=== PATIENT | female | born 1995 | race Caucasian/White ===

== ENCOUNTER 2022-03-01 22:16 | Emergency (ER) | payer OTHER ==
[2022-03-01 22:34] VITALS: TEMP 99.1
--- NOTE | 2022-03-01 23:43 | XR ---
EXAMINATION TYPE: XR hand complete RT DATE OF EXAM: 03/01/2022 COMPARISON: NONE HISTORY: Dog bite TECHNIQUE: 3 views FINDINGS: Metacarpals are intact. I see no fracture nor dislocation. There is mild soft tissue air be tween the first and second metacarpals. Carpal bones are intact. Fingers are intact IMPRESSION: There is minimal soft tissue air consistent with laceration. No fracture seen.
[2022-03-02] MEDS ORDERED: DIPH,PERTUS(ACELL)TETVAC-LF 0.5 ML VIAL IM ONE (00:33)
[2022-03-02] MEDS ORDERED: HYDROcodone/APAP 5-325MG 1 EACH TAB PO STA (00:33)
[2022-03-02] MEDS ORDERED: LIDOCAINE 1% INJ 10MG/ML (5 ML VIAL-PF) SQ ONE (00:45)
[2022-03-02] MEDS ORDERED: AMOXIC-POT CLAV 875-125MG 1 EACH TAB PO STA (01:04)
--- NOTE | 2022-03-02 01:07 | ED ---
General Adult HPI - General Chief complaint: Trauma Stated complaint: dog bite Time Seen by Provider: 03/02/22 00:30 Source: patient, family, RN notes reviewed, old records reviewed Mode of arrival: ambulatory Limitations: no limitations - History of Present Illness Initial comments: 26-year-old female presents with multiple dog bites to her right hand with punctures and lacerations. Patient states the dog is a coworkers pit bull whose shots are up-to-date. -: hour(s) Radiation: non-radiation, distal (little finger) Severity scale (1-10): 10 Quality: stabbing, constant Consistency: constant Associated Symptoms: denies other symptoms Treatments Prior to Arrival: none - Related Data Previous Rx's Medication Instructions Recorded Amoxic-Pot Clav 875-125Mg 1 tab PO Q12HR 10 Days #20 tab 03/02/22 [Augmentin 875-125] Allergies Allergy/AdvReac Type Severity Reaction Status Date / Time No Known Allergies Allergy Verified 03/01/22 22:34 Review of Systems ROS Statement: Those systems with pertinent positive or pertinent negative responses have been documented in the HPI. ROS Other: All systems not noted in ROS Statement are negative. Past Medical History History of Any Multi-Drug Resistant Organisms: None Reported Past Psychological History: Depression Smoking Status: Former smoker Past Alcohol Use History: None Reported Past Drug Use History: Marijuana General Exam Limitations: no limitations General appearance: alert, in no apparent distress Head exam: Present: atraumatic Eye exam: Present: normal appearance. Absent: scleral icterus, conjunctival i njection ENT exam: Present: mucous membranes moist Neck exam: Present: full ROM. Absent: meningismus Respiratory exam: Absent: respiratory distress, accessory muscle use Cardiovascular Exam: Present: regular rate GI/Abdominal exam: Present: soft. Absent: distended, tenderness Extremities exam: Present: full ROM, normal capillary refill. Absent: tenderness, pedal edema Right Forearm Wrist exam: Present: laceration (2 lacerations approx 3mm to anterior wrist and puncture wound to dorsal surface of thumb) Hand Wrist exam: Present: full ROM, tenderness, laceration Neurosensory exam: Present: radial nerve intact, ulnar nerve intact, median nerve intact Vascular: Present: normal capillary refill. Absent: vascular compromise Neurological exam: Present: alert, oriented X3 Psychiatric exam: Present: anxious Skin exam: Present: warm, dry, normal color. Absent: cyanosis, diaphoretic Course Vital Signs 03/01/22 03/02/22 03/02/22 22:29 00:59 01:51 Temperature 99.1 F Pulse Rate 78 88 92 Respiratory 24 20 Rate Blood Pressure 118/68 128/97 O2 Sat by Pulse 87 L 95 95 Oximetry Procedures - Laceration Laceration #1 Consent Obtained: verbal consent Indication: laceration Site: hand (right) Size (cm): 5 Description: linear Depth: simple, single layer Anesthetic Used: lidocaine 1% Anesthesia Technique: local infiltration Pre-repair: irrigated extensively Type of Sutures: nylon Size of Sutures: 4-0 Number of Sutures: 3 Technique: simple, interrupted Patient Tolerated Procedure: well, no complications Medical Decision Making - Medical Decision Making Wounds were soaked and irrigated copiously with saline. Gaping 5cm laceration over the palmar surface overlying the fifth metacarpal was loosely approximated with 3 sutures. Patient's tetanus was updated. Other puncture sites were irrigated with saline and bacitracin dressing applied. She was placed on antibiotics and given a dose in the emergency room. She was directed to have coworker monitor his dog for any illnesses. Follow-up with hand surgery this week. Return parameters were discussed including increased pain, fevers or signs of infection. Patient family are agreeable to this plan of care. Case discussed with Dr. Kirkland. Disposition Clinical Impression: Dog bite, Laceration of hand Disposition: HOME SELF-CARE Condition: Good Additional Instructions: Keep wound clean and dry. Take antibiotics as prescribed. Follow-up with hand doctor as referred this week. Return to the emergency room with any new or concerning symptoms increased pain, fevers or drainage. Have the dog monitored for any signs of illness. Prescriptions: Amoxic-Pot Clav 875-125Mg [Augmentin 875-125] 1 tab PO Q12HR 10 Days #20 tab Is patient prescribed a controlled substance at d/c from ED?: No Referrals: None,Stated [Primary Care Provider] - 1-2 days Patricia Gatica DO [Doctor of Osteopathic Medicine] - 1-2 days Time of Disposition: 01:26
[2022-03-02] MEDS ORDERED: ACET/COD 300 MG/30 MG STARTER PACK 6 TAB BTL PO STA (01:24)
[2022-03-02] MEDS ORDERED: BACITRACIN OINT 1 EACH PACKET TOPICAL ONE (01:24)
[2022-03-02 01:52] VITALS: BP 128/97; PULSE 92; RESP 20
== END 2022-03-02 01:57 | disposition home or self-care (01) ==
LOC: EC 22:16
DX: S61.411A Laceration without foreign body of right hand, initial encounter (principal); Z23 Encounter for immunization; F32.A Depression, unspecified; Z87.891 Personal history of nicotine dependence; F12.90 Cannabis use, unspecified, uncomplicated; W54.0XXA Bitten by dog, initial encounter
CPT/HCPCS: 12002; 90471; 90715; 99283

== ENCOUNTER 2022-03-03 15:07 | Emergency (ER) | payer OTHER ==
[2022-03-03 15:38] VITALS: BP 112/68; PULSE 72; RESP 18; TEMP 98.4
[2022-03-03 16:55] LABS: Basophils # (A) 0.1 k/uL (0-0.2); Basophils % (A) 1 %; Eosinophils # (A) 1.1 k/uL (0-0.7); Eosinophils % (A) 12 %; HCT 43.8 % (34.0-46.0); HGB 14.8 gm/dL (11.4-16.0); Lymphocytes # (A) 1.6 k/uL (1.0-4.8); Lymphocytes % (A) 17 %; MCH 28.5 pg (25.0-35.0); MCHC 33.8 g/dL (31.0-37.0); MCV 84.5 fL (80.0-100.0); Mean Platelet Volume 8.3; Monocytes # (A) 0.5 k/uL (0-1.0); Monocytes % (A) 5 %; Neutrophils # (A) 6.2 k/uL (1.3-7.7); Neutrophils % (A) 64 %; Platelet Count 258 k/uL (150-450); RBC 5.18 m/uL (3.80-5.40); RDW 14.5 % (11.5-15.5); WBC 9.6 k/uL (3.8-10.6)
[2022-03-03] MEDS ORDERED: AMPICILLIN-SULBACTAM 1.5 GM in SODIUM CHLORIDE 0.9% 50 ML IVPB ONE (17:00)
[2022-03-03 17:04] LABS: ALT 20 U/L (4-34); AST 20 U/L (14-36); African American GFR (CKD) >90 (>60 ml/min/1.73 sqM); Alkaline Phosphatase 68 U/L (38-126); Anion Gap 8 mmol/L; Blood Urea Nitrogen 11 mg/dL (7-17); Calcium 9.1 mg/dL (8.4-10.2); Carbon Dioxide 26 mmol/L (22-30); Chloride 106 mmol/L (98-107); Glucose 81 mg/dL (74-99); Non-African American GFR(CKD) >90 (>60 ml/min/1.73 sqM); Potassium 3.2 mmol/L (3.5-5.1); Sodium 140 mmol/L (137-145); Total Bilirubin 1.1 mg/dL (0.2-1.3); Total Protein 7.1 g/dL (6.3-8.2)
--- NOTE | 2022-03-03 17:11 | ED ---
Animal Bite HPI - General Chief Complaint: Animal Bite Stated Complaint: Recheck,Dog Bite Time Seen by Provider: 03/03/22 15:41 Source: patient, RN notes reviewed, old records reviewed Mode of arrival: ambulatory Limitations: no limitations - History of Present Illness Initial Comments: Patient is a 26-year-old female presents back to the emergency room with complaints of increased swelling, pain and drainage along with warmth to her right hand and wrist region. She was seen yesterday in the emergency room after she was bitten by a dog. X-ray at that time with negative for fracture or dislocation and showed soft tissue swelling. 3 sutures were placed and she was advised to follow up with her primary care provider and start oral antibiotics. She reports that she was advised that the rabies vaccines of the dog are up-to-date. Unfortunately due to the location of her work she was unable to obtain the oral antibiotics. She did receive IV antibiotic of Unasyn in the hospital. Her tetanus shot is up-to-date. She has no other significant past medical history with the exception of asthma which she denies any recent exacerbations. - Related Data Previous Rx's Medication Instructions Recorded Amoxic-Pot Clav 875-125Mg 1 tab PO Q12HR 10 Days #20 tab 03/02/22 [Augmentin 875-125] Allergies Allergy/AdvReac Type Severity Reaction Status Date / Time No Known Allergies Allergy Verified 03/03/22 15:35 Review of Systems ROS Statement: Those systems with pertinent positive or pertinent negative responses have been documented in the HPI. ROS Other: All systems not noted in ROS Statement are negative. Past Medical History Past Medical History: Asthma History of Any Multi-Drug Resistant Organisms: None Reported Past Surgical History: Appendectomy, Section, Cholecystectomy, Tubal Ligation Past Psychological History: Depression Smoking Status: Former smoker Past Alcohol Use History: None Reported Past Drug Use History: Marijuana General Exam Limitations: no limitations General appearance: alert, in no apparent distress Head exam: Present: atraumatic, normocephalic, normal inspection Eye exam: Present: normal appearance, PERRL, EOMI. Absent: scleral icterus, con junctival injection, periorbital swelling ENT exam: Present: normal exam, mucous membranes moist Neck exam: Present: normal inspection. Absent: lymphadenopathy Respiratory exam: Present: normal lung sounds bilaterally. Absent: respiratory distress, wheezes, rales, rhonchi, stridor Cardiovascular Exam: Present: regular rate, normal rhythm, normal heart sounds. Absent: systolic murmur, diastolic murmur, rubs, gallop, clicks GI/Abdominal exam: Present: soft. Absent: distended, tenderness Right Hand Wrist exam: Present: tenderness, swelling, laceration, erythema. Absent: full ROM (Due to swelling and pain) Vascular: Absent: vascular compromise Back exam: Present: normal inspection Neurological exam: Present: alert, oriented X3, CN II-XII intact Psychiatric exam: Present: normal affect, normal mood Skin exam: Present: other (Laceration right hand with purulent drainage, no odor.) Course Vital Signs 03/03/22 15:35 Temperature 98.4 F Pulse Rate 72 Respiratory 18 Rate Blood Pressure 112/68 O2 Sat by Pulse 96 Oximetry Medical Decision Making - Medical Decision Making Purulent drainage warmth and significant edema noted. Will check CBC comp lactic acid and blood cultures for worsening of infectious process will give another dose of Unasyn IV and repeat x-ray left hand. High concern for cellulitis needing IV antibiotics given severity of swelling and drainage with wound only 24 hours old. Sutures 3 and tacked loosely. CBC and lactic acid normal blood cultures still pending advised will receive call from hospital if positive cultures. Normal with the exception of low potassium at 3.2. No obvious signs of loss. Will replace orally once no need for outpatient potassium at this time. X-ray negative for foreign body, osteomyelitis, fracture or dislocation. Soft tissue swelling persists. Patient has appointment are ready scheduled with Dr. Gatica tomorrow. Will discharge home and keep off work until cleared by orthopedist. 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 Case discussed with Dr. Soto. - Lab Data Result diagrams: 03/03/22 16:40 03/03/22 16:40 Lab Results 03/03/22 03/03/22 03/03/22 Range/Units 16:40 16:40 16:40 WBC 9.6 (3.8-10.6) k/uL RBC 5.18 (3.80-5.40) m/uL Hgb 14.8 (11.4-16.0) gm/dL Hct 43.8 (34.0-46.0) % MCV 84.5 (80.0-100.0) fL MCH 28.5 (25.0-35.0) pg MCHC 33.8 (31.0-37.0) g/dL RDW 14.5 (11.5-15.5) % Plt Count 258 (150-450) k/uL MPV 8.3 Neutrophils % 64 % Lymphocytes % 17 % Monocytes % 5 % Eosinophils % 12 % Basophils % 1 % Neutrophils # 6.2 (1.3-7.7) k/uL Lymphocytes # 1.6 (1.0-4.8) k/uL Monocytes # 0.5 (0-1.0) k/uL Eosinophils # 1.1 H (0-0.7) k/uL Basophils # 0.1 (0-0.2) k/uL Sodium 140 (137-145) mmol/L Potassium 3.2 L (3.5-5.1) mmol/L Chloride 106 (98-107) mmol/L Carbon Dioxide 26 (22-30) mmol/L Anion Gap 8 mmol/L BUN 11 (7-17) mg/dL Creatinine 0.71 (0.52-1.04) mg/dL Est GFR (CKD-EPI)AfAm >90 (>60 ml/min/1.73 sqM) Est GFR (CKD-EPI)NonAf >90 (>60 ml/min/1.73 sqM) Glucose 81 (74-99) mg/dL Plasma Lactic Acid Ken 0.7 (0.7-2.0) mmol/L Calcium 9.1 (8.4-10.2) mg/dL Total Bilirubin 1.1 (0.2-1.3) mg/dL AST 20 (14-36) U/L ALT 20 (4-34) U/L Alkaline Phosphatase 68 (38-126) U/L Total Protein 7.1 (6.3-8.2) g/dL Albumin 4.0 (3.5-5.0) g/dL Disposition Clinical Impression: Bite by animal Disposition: HOME SELF-CARE Instructions (If sedation given, give patient instructions): Animal Bite (ED), Care For Your Stitches (ED), Acute Wound Care (ED) Additional Instructions: Please obtain already prescribed antibiotics of Augmentin and complete as pr escribed. Please keep upcoming appointment with Dr. Gatica tomorrow for further evaluation and treatment of hand injury. Continue to monitor for increased swelling, redness and drainage. Along with fevers chills nausea or vomiting. Please report back to the emergency room if the symptoms occur. Please refrain from returning to work until cleared by the orthopedist. Utilize Tylenol or ibuprofen as needed for pain. Keep arm elevated. Apply ice for 20 minute increments every 2-4 hours as tolerated. Please return to the Emergency Department if symptoms worsen or any other concerns. Is patient prescribed a controlled substance at d/c from ED?: No Referrals: None,Stated [Primary Care Provider] - 1-2 days Patricia Gatica DO [Doctor of Osteopathic Medicine] - 03/04/22 Time of Disposition: 18:43
--- NOTE | 2022-03-03 18:03 | XR ---
EXAMINATION TYPE: XR hand limited RT DATE OF EXAM: 03/03/2022 COMPARISON: NONE HISTORY: Dog bite. TECHNIQUE: 2 view FINDINGS: There is soft tissue swelling on the dorsum of the hand. Metacarpals are intact. No fractur e nor dislocation. No evidence of a foreign body. IMPRESSION: Soft tissue swelling. No fracture. No evidence of fifth metacarpal fracture.
[2022-03-03] MEDS ORDERED: POTASSIUM CHLORIDE ER 20 MEQ TAB.ER PO STA (18:22)
== END 2022-03-03 19:09 | disposition home or self-care (01) ==
LOC: EC 15:07
DX: S61.451A Open bite of right hand, initial encounter (principal); J45.909 Unspecified asthma, uncomplicated; Z87.891 Personal history of nicotine dependence; T14.8XXA Other injury of unspecified body region, initial encounter; W54.0XXA Bitten by dog, initial encounter
CPT/HCPCS: 36415; 80053; 83605; 85025; 87040; 73120; 99283; 96365; J0295

== ENCOUNTER 2022-03-04 10:59 | Observation (INO) | payer OTHER ==
[2022-03-04] MEDS ORDERED: HYDROmorphone 0.5 MG/0.5 ML SYRINGE IVP STA ×2 (11:27→12:53)
--- NOTE | 2022-03-04 11:32 | ED ---
Animal Bite HPI - General Chief Complaint: Animal Bite Stated Complaint: Right hand dog bite Time Seen by Provider: 03/04/22 11:11 Source: patient, RN notes reviewed Mode of arrival: ambulatory Limitations: no limitations - History of Present Illness Initial Comments: This is a 26-year-old female who presents to the emergency department for a dog bite to the right hand. This occurred 2 days ago. The dog was a coworker's pit bull and the dog is up-to-date on all vaccinations. She saw Dr. Gatica, orthopedics, today. She was instructed to come to the emergency department for admission due to infection. She has started to have purulent drainage with redness spreading up the right arm. States that the pain is throbbing and she is having difficulty moving her fingers. Denies any fevers, chills, sore throat, cough, dyspnea, chest pain, p alpitations, abdominal pain, nausea, vomiting, diarrhea, back pain, or headaches. MD Complaint: animal bite Onset/Timin -: days(s) Right: Hand Animal: dog Description: household pet Mechanism: bite Associated Symptoms: erythema, discharge from wound, bleeding Treatments Prior to Arrival: wound dressing(s) - Related Data Patient Tetanus UTD: Yes Home Medications Medication Instructions Recorded Confirmed Albuterol Sulfate [Ventolin HFA] 2 puff INHALATION RT-Q4H PRN 03/04/22 03/04/22 Escitalopram [Lexapro] 5 mg PO HS 03/04/22 03/04/22 Etonogestrel [Nexplanon] 68 mg SQ [id number] 03/04/22 03/04/22 Fluticasone Propionate 110 Mcg 2 puff INHALATION RT-BID 03/04/22 03/04/22 [Flovent 110 Mcg Inhaler] Allergies Allergy/AdvReac Type Severity Reaction Status Date / Time No Known Allergies Allergy Verified 03/04/22 14:03 Review of Systems ROS Statement: Those systems with pertinent positive or pertinent negative responses have been documented in the HPI. ROS Other: All systems not noted in ROS Statement are negative. Past Medical History Past Medical History: Asthma History of Any Multi-Drug Resistant Organisms: None Reported Past Surgical History: Appendectomy, Section, Cholecystectomy, Tubal Ligation Past Psychological History: Depression Smoking Status: Former smoker Past Alcohol Use History: None Reported Past Drug Use History: Marijuana - Past Family History Father Family Medical History: Hyperlipidemia, Hypertension Mother Family Medical History: No Reported History Additional Family Medical History / Comment(s): Mother is healthy General Exam Limitations: no limitations General appearance: alert, in no apparent distress Head exam: Present: atraumatic, normocephalic, normal inspection Respiratory exam: Present: normal lung sounds bilaterally. Absent: respiratory distress, wheezes, rales, rhonchi, stridor Cardiovascular Exam: Present: regular rate, normal rhythm, normal heart sounds. Absent: systolic murmur, diastolic murmur, rubs, gallop, clicks Extremities exam: Present: other (Bite wound just inferior to the right thumb with active purulent drainage and bleeding. Diffuse swelling of the right hand with erythema spreading to the mid forearm. Tenderness to palpation. Limited range of motion of the fingers secondary to pain and swelling.) Neurological exam: Present: alert, oriented X3, CN II-XII intact Psychiatric exam: Present: normal affect, normal mood Course Vital Signs 03/04/22 03/04/22 11:06 13:23 Temperature 98.5 F Pulse Rate 82 80 Respiratory 20 17 Rate Blood Pressure 140/76 118/71 O2 Sat by Pulse 96 92 L Oximetry Medical Decision Making - Medical Decision Making This is a 26-year-old female who presents to the emergency department for a dog bite to the right hand. Wound and blood cultures ordered as well as basic lab work. Patient started on IV Unasyn and admitted to orthopedics. This case was discussed in detail with the attending ED physician. Presentation, findings, and treatment plan discussed in detail as well. - Lab Data Result diagrams: 03/04/22 11:54 03/04/22 11:54 Lab Results 03/04/22 03/04/22 03/04/22 Range/Units 11:54 11:54 11:54 WBC 9.6 (3.8-10.6) k/uL RBC 5.08 (3.80-5.40) m/uL Hgb 14.4 (11.4-16.0) gm/dL Hct 42.8 (34.0-46.0) % MCV 84.3 (80.0-100.0) fL MCH 28.3 (25.0-35.0) pg MCHC 33.6 (31.0-37.0) g/dL RDW 14.5 (11.5-15.5) % Plt Count 266 (150-450) k/uL MPV 8.4 Neutrophils % 62 % Lymphocytes % 19 % Monocytes % 4 % Eosinophils % 12 % Basophils % 1 % Neutrophils # 6.0 (1.3-7.7) k/uL Lymphocytes # 1.8 (1.0-4.8) k/uL Monocytes # 0.4 (0-1.0) k/uL Eosinophils # 1.2 H (0-0.7) k/uL Basophils # 0.1 (0-0.2) k/uL ESR (0-20) mm/hr Sodium 139 (137-145) mmol/L Potassium 3.4 L (3.5-5.1) mmol/L Chloride 108 H (98-107) mmol/L Carbon Dioxide 24 (22-30) mmol/L Anion Gap 7 mmol/L BUN 8 (7-17) mg/dL Creatinine 0.62 (0.52-1.04) mg/dL Est GFR (CKD-EPI)AfAm >90 (>60 ml/min/1.73 sqM) Est GFR (CKD-EPI)NonAf >90 (>60 ml/min/1.73 sqM) Glucose 90 (74-99) mg/dL Plasma Lactic Acid Ken 0.9 (0.7-2.0) mmol/L Calcium 9.0 (8.4-10.2) mg/dL Total Bilirubin 0.8 (0.2-1.3) mg/dL AST 21 (14-36) U/L ALT 18 (4-34) U/L Alkaline Phosphatase 66 (38-126) U/L C-Reactive Protein (<1.0) mg/dL Total Protein 6.7 (6.3-8.2) g/dL Albumin 3.8 (3.5-5.0) g/dL 03/04/22 03/04/22 Range/Units 11:54 11:54 WBC (3.8-10.6) k/uL RBC (3.80-5.40) m/uL Hgb (11.4-16.0) gm/dL Hct (34.0-46.0) % MCV (80.0-100.0) fL MCH (25.0-35.0) pg MCHC (31.0-37.0) g/dL RDW (11.5-15.5) % Plt Count (150-450) k/uL MPV Neutrophils % % Lymphocytes % % Monocytes % % Eosinophils % % Basophils % % Neutrophils # (1.3-7.7) k/uL Lymphocytes # (1.0-4.8) k/uL Monocytes # (0-1.0) k/uL Eosinophils # (0-0.7) k/uL Basophils # (0-0.2) k/uL ESR 28 H (0-20) mm/hr Sodium (137-145) mmol/L Potassium (3.5-5.1) mmol/L Chloride (98-107) mmol/L Carbon Dioxide (22-30) mmol/L Anion Gap mmol/L BUN (7-17) mg/dL Creatinine (0.52-1.04) mg/dL Est GFR (CKD-EPI)AfAm (>60 ml/min/1.73 sqM) Est GFR (CKD-EPI)NonAf (>60 ml/min/1.73 sqM) Glucose (74-99) mg/dL Plasma Lactic Acid Ken (0.7-2.0) mmol/L Calcium (8.4-10.2) mg/dL Total Bilirubin (0.2-1.3) mg/dL AST (14-36) U/L ALT (4-34) U/L Alkaline Phosphatase (38-126) U/L C-Reactive Protein 4.1 H (<1.0) mg/dL Total Protein (6.3-8.2) g/dL Albumin (3.5-5.0) g/dL - Radiology Data Radiology results: report reviewed, image reviewed Disposition Clinical Impression: Dog bite of right hand with infection Disposition: ADMITTED IP TO THIS HOSP
[2022-03-04] MEDS: AMPICILLIN-SULBACTAM 3 GM in SODIUM CHLORIDE 0.9% 100 ML IVPB SCH ×2 (11:49→17:50)
[2022-03-04 12:13] LABS: Basophils # (A) 0.1 k/uL (0-0.2); Basophils % (A) 1 %; Eosinophils # (A) 1.2 k/uL (0-0.7); Eosinophils % (A) 12 %; HCT 42.8 % (34.0-46.0); HGB 14.4 gm/dL (11.4-16.0); Lymphocytes # (A) 1.8 k/uL (1.0-4.8); Lymphocytes % (A) 19 %; MCH 28.3 pg (25.0-35.0); MCHC 33.6 g/dL (31.0-37.0); MCV 84.3 fL (80.0-100.0); Mean Platelet Volume 8.4; Monocytes # (A) 0.4 k/uL (0-1.0); Monocytes % (A) 4 %; Neutrophils % (A) 62 %; Platelet Count 266 k/uL (150-450); RBC 5.08 m/uL (3.80-5.40); RDW 14.5 % (11.5-15.5); WBC 9.6 k/uL (3.8-10.6)
--- NOTE | 2022-03-04 12:16 | XR ---
EXAMINATION TYPE: XR hand complete RT DATE OF EXAM: 03/04/2022 COMPARISON: NONE HISTORY: Pain TECHNIQUE: Three views are submitted. FINDINGS: The osseous structures are intact. The joint spaces are preserved and there is no acute fracture or dislocation. IMPRESSION: 1. No definite acute fracture or dislocation if symptoms persist, follow-up study in 7 to 10 days wo uld be suggested
[2022-03-04 12:26] LABS: ALT 18 U/L (4-34); AST 21 U/L (14-36); African American GFR (CKD) >90 (>60 ml/min/1.73 sqM); Albumin 3.8 g/dL (3.5-5.0); Alkaline Phosphatase 66 U/L (38-126); Anion Gap 7 mmol/L; Blood Urea Nitrogen 8 mg/dL (7-17); Carbon Dioxide 24 mmol/L (22-30); Chloride 108 mmol/L (98-107); Glucose 90 mg/dL (74-99); Non-African American GFR(CKD) >90 (>60 ml/min/1.73 sqM); Potassium 3.4 mmol/L (3.5-5.1); Sodium 139 mmol/L (137-145); Total Bilirubin 0.8 mg/dL (0.2-1.3); Total Protein 6.7 g/dL (6.3-8.2)
[2022-03-04] MEDS ORDERED: NALOXONE 0.4 MG/ML 1 ML VIAL IV PRN (13:09)
--- NOTE | 2022-03-04 15:55 | P.HPOR ---
History of Present Illness H&P Date: 03/04/22 Chief Complaint: Dog bite right hand The patient is a 26 y/o female that presented to our office this morning for an evaluation of her right hand. She states she was bitten by her coworker's dog on Wednesday night. She went to the [facility] ER to evaluation that night and sutures were placed. Oral antibiotics were prescribed but she did not have them filled yet. The hand continued to worsen and she noticed redness was spreading up her hand just past her wrist. The patient presented to the ER again last night and IV antibiotics were given. She was sent home with a follow up in our office today. She denies any fevers or chills but does states the pain in the hand is worse since last night. Upon evaluation in our office, the patient was given two options for treatment: close observation in the office with follow up tomorrow or admit to the hospital today for IV antibiotics. She chose to be admitted for close monitoring and IV antibiotics at hospital. Infectious disease has been consulted. She was started on Unasyn while in the ER. Review of Systems Constitutional: Denies chills, Denies fatigue, Denies fever Cardiovascular: Denies chest pain, Denies shortness of breath Respiratory: Denies cough Gastrointestinal: Denies diarrhea, Denies nausea, Denies vomiting Musculoskeletal: right: hand pain, hand stiffness, hand swelling Past Medical History Past Medical History: Asthma History of Any Multi-Drug Resistant Organisms: None Reported Past Surgical History: Appendectomy, Section, Cholecystectomy, Tubal Ligation Additional Past Surgical History / Comment(s): [place] teeth extractions. Past Anesthesia/Blood Transfusion Reactions: No Reported Reaction Smoking Status: Former smoker - Past Family History Father Family Medical History: Hyperlipidemia, Hypertension Mother Family Medical History: No Reported History Additional Family Medical History / Comment(s): Mother is healthy Medications and Allergies Home Medications Medication Instructions Recorded Confirmed Type Albuterol Sulfate [Ventolin HFA] 2 puff INHALATION RT-Q4H PRN 03/04/22 03/04/22 History Escitalopram [Lexapro] 5 mg PO HS 03/04/22 03/04/22 History Etonogestrel [Nexplanon] 68 mg SQ [id number] 03/04/22 03/04/22 History Fluticasone Propionate 110 Mcg 2 puff INHALATION RT-BID 03/04/22 03/04/22 History [Flovent 110 Mcg Inhaler] Allergies Allergy/AdvReac Type Severity Reaction Status Date / Time No Known Allergies Allergy Verified 03/04/22 14:03 Physical Examination The patient is a 26 y/o female in no acute distress. She is alert and oriented x3. Exam of the right hand reveals a sutured laceration to the volar ulnar hand with surrounding mild erythema. Sutures were removed in the office today to allow the wound to drain. Purulent drainage is present. There are multiple puncture wounds with one puncture wound on the dorsal aspect of the thumb at the proximal phalanx level that is draining purulent drainage. There is finger stiffness and swelling present. The thumb is very painful with any motion. No proximal red streaking noted today. There is numbness to the volar aspect of the ulnar hand including the right little finger. Neurological status is intact otherwise to the rest of the hand. Circulatory status is intact. Results X-rays of the right hand from 03/01/2022 and 03/03/2022 were reviewed without signs of osteomyelitis noted. - Labs Labs: Abnormal Lab Results - Last 24 Hours (Table) 03/04/22 03/04/22 03/04/22 Range/Units 11:54 11:54 11:54 Eosinophils # 1.2 H (0-0.7) k/uL ESR 28 H (0-20) mm/hr Potassium 3.4 L (3.5-5.1) mmol/L Chloride 108 H (98-107) mmol/L C-Reactive Protein (<1.0) mg/dL 03/04/22 Range/Units 11:54 Eosinophils # (0-0.7) k/uL ESR (0-20) mm/hr Potassium (3.5-5.1) mmol/L Chloride (98-107) mmol/L C-Reactive Protein 4.1 H (<1.0) mg/dL H & H 03/04/22 Range/Units 11:54 Hgb 14.4 (11.4-16.0) gm/dL Hct 42.8 (34.0-46.0) % Result Diagrams: 03/04/22 11:54 03/04/22 11:54 Assessment and Plan (1) Dog bite of right hand with infection Current Visit: Yes Status: Acute Code(s): S61.451A - OPEN BITE OF RIGHT HAND, INITIAL ENCOUNTER; L08.9 - LOCAL INFECTION OF THE SKIN AND SUBCUTANEOUS TISSUE, UNSP; W54.0XXA - BITTEN BY DOG, INITIAL ENCOUNTER SNOMED Code(s): 739617038 (2) Laceration of hand Current Visit: No Status: Acute Code(s): S61.419A - LACERATION WITHOUT FOREIGN BODY OF UNSP HAND, INIT ENCNTR SNOMED Code(s): 537518995 (3) Asthma Current Visit: Yes Status: Acute Code(s): J45.909 - UNSPECIFIED ASTHMA, UNCOMPLICATED SNOMED Code(s): 675502075 Plan: The clinical and x-ray findings were discussed with the patient. The patient was evaluated by Dr. Gatica in our office today. She was admitted to our service for treatment. Continue Unasyn until seen by infectious disease. Warm water and betadine soaks twice daily with dressing to the right hand. Strict elevation of the right hand with finger motion as tolerated. She will be placed NPO tonight at midnight for possible I&D tomorrow after if the hand is not improved at least 50% in the morning. We will continue to monitor her closely and make further recommendations as needed.
[2022-03-04] MEDS: KETOROLAC 15 MG/ML 1 ML VIAL IVP PRN (16:00)
[2022-03-04] MEDS ORDERED: ALBUTEROL NEBULIZED 2.5 MG/3 ML INHALATION PRN (19:31)
[2022-03-04] MEDS: FLUTICASONE 110 MCG INHALER INHALATION SCH (19:56)
[2022-03-04] MEDS: ESCITALOPRAM 5 MG TAB PO SCH (20:04)
[2022-03-04] MEDS: HYDROcodone/APAP 5-325MG 1 EACH TAB PO PRN (20:13)
--- NOTE | 2022-03-04 22:51 | P.CONS ---
History of Present Illness - Reason for Consult Consult date: 03/04/22 Dog bite wound and cellulitis Requesting physician: Isidra Swan - Chief Complaint Right hand pain swelling and redness x few days - History of Present Illness Patient is a 26-year-old female apparently has been bitten by her coworker dog on the right hand Wednesday night that is 3 days prior to presentation to the hospital patient mention she came to the ER that night was evaluated by the ER physician did have sutures placed and the patient was prescribed an tibiotic however the patient has not filled them patient subsequently presented back to the hospital yesterday concerning for increasing pain swelling and redness patient apparently was given a dose of IV antibiotic subsequently was discharged home and instructed to follow-up with hand surgeon today patient was evaluated by orthopedic associate concerning for worsening cellulitis patient be sent back to the ER for admission patient currently denies having any fever or any chills she has been complaining of pain to the right hand bite site mostly throbbing almost 10 out of 10 with no radiation. Her mild drainage but no foul- smelling, patient denies having any chest pain or shortness of breath or cough no nausea no vomiting no abdominal pain no diarrhea on presentation to the hospital the patient was afebrile patient did have a normal white count kidney function has been normal liver enzymes are normal patient did have x-ray of the hand no definite acute fracture or dislocation blood cultures obtained which are currently pending patient was started on Unasyn admitted to hospital infectious disease was consulted for further management of antibiotic therapy Review of Systems Positive point has been mentioned in the HPI rest of the systems are negative Past Medical History Past Medical History: Asthma History of Any Multi-Drug Resistant Organisms: None Reported Past Surgical History: Appendectomy, Section, Cholecystectomy, Tubal Ligation Past Psychological History: Depression Smoking Status: Former smoker Past Alcohol Use History: None Reported Past Drug Use History: Marijuana - Past Family History Father Family Medical History: Hyperlipidemia, Hypertension Mother Family Medical History: No Reported History Additional Family Medical History / Comment(s): Mother is healthy Medications and Allergies Home Medications Medication Instructions Recorded Confirmed Type Albuterol Sulfate [Ventolin HFA] 2 puff INHALATION RT-Q4H PRN 03/04/22 03/04/22 History Escitalopram [Lexapro] 5 mg PO HS 03/04/22 03/04/22 History Etonogestrel [Nexplanon] 68 mg SQ [id number] 03/04/22 03/04/22 History Fluticasone Propionate 110 Mcg 2 puff INHALATION RT-BID 03/04/22 03/04/22 History [Flovent 110 Mcg Inhaler] HYDROcodone/APAP 5-325MG [Girard 1 - 2 tab PO Q6HR PRN #32 tab 03/06/22 Rx 5-325] Allergies Allergy/AdvReac Type Severity Reaction Status Date / Time No Known Allergies Allergy Verified 03/05/22 15:57 Physical Exam Vitals: Vital Signs Temp Pulse Resp BP Pulse Ox 03/04/22 13:23 80 17 118/71 92 L 03/04/22 11:06 98.5 F 82 20 140/76 96 Intake and Output 03/03/22 03/04/22 03/04/22 22:59 06:59 14:59 Other: Weight 114.305 kg GENERAL DESCRIPTION: Middle-aged female lying in bed, no distress. No tachypnea or accessory muscle of respiration use. HEENT: Shows Pallor , no scleral icterus. Oral mucous membrane is dry. No pharyngeal erythema or thrush NECK: Trachea central, no thyromegaly. LUNGS: Unlabored breathing. Clear to auscultation anteriorly. No wheeze or crackle. HEART: S1, S2, regular rate and rhythm. No loud murmur ABDOMEN: Soft, no tenderness , guarding or rigidity, no organomegaly EXTREMITIES: Right hand did have a deep wound with some slough tissue and there was some purulent drainage which was cultured SKIN: No rash, no masses palpable. NEUROLOGICAL: The patient is awake, alert, oriented x3, mood and affect normal. Results CBC & Chem 7: 03/04/22 11:54 03/04/22 11:54 Labs: Abnormal Lab Results - Last 24 Hours (Table) 03/04/22 03/04/22 03/04/22 Range/Units 11:54 11:54 11:54 Eosinophils # 1.2 H (0-0.7) k/uL Potassium 3.4 L (3.5-5.1) mmol/L Chloride 108 H (98-107) mmol/L C-Reactive Protein 4.1 H (<1.0) mg/dL Assessment and Plan (1) Dog bite of right hand with infection Current Visit: Yes Status: Acute Code(s): S61.451A - OPEN BITE OF RIGHT HAND, INITIAL ENCOUNTER; L08.9 - LOCAL INFECTION OF THE SKIN AND SUBCUTANEOUS TISSUE, UNSP; W54.0XXA - BITTEN BY DOG, INITIAL ENCOUNTER SNOMED Code(s): 270361044 Plan: 1patient with right hand dog bite cellulitis and wound infection will need to call for the polymicrobial francis of the dog mouth and this patient is not taking her antibiotic as prescribed on initial visit. 2blood and local culture has been obtained to guide further therapy. 3possible debridement and deep culture in the morning per orthopedic. 4Unasyn 3 g every 6 hours 5dry protective dressing to the area. We will follow on clinical condition and cultures to further adjust medication if needed Thank you for this consultation will follow this patient along with you Time with Patient: Greater than 30
[2022-03-05] MEDS: AMPICILLIN-SULBACTAM 3 GM in SODIUM CHLORIDE 0.9% 100 ML IVPB SCH ×4 (00:46→16:29)
[2022-03-05] MEDS: FLUTICASONE 110 MCG INHALER INHALATION SCH ×2 (07:49→19:54)
[2022-03-05] MEDS: HYDROmorphone 0.5 MG/0.5 ML SYRINGE IVP PRN ×2 (09:45→17:41)
[2022-03-05] MEDS: HYDROcodone/APAP 5-325MG 1 EACH TAB PO PRN ×2 (10:42→20:05)
[2022-03-05] MEDS: ONDANSETRON 4 MG/2 ML VIAL IVP PRN (14:37)
[2022-03-05] MEDS ORDERED: LACTATED RINGERS 1,000 ML IV ONE ×2 (16:01→18:30)
[2022-03-05] MEDS ORDERED: KETAMINE 10 MG/ML 20 ML VIAL ONE (16:25)
[2022-03-05] MEDS ORDERED: fentaNYL (PF) 50 MCG/ML 2 ML AMP ONE (16:25)
[2022-03-05] MEDS ORDERED: PROPOFOL 10 MG/ML 20 ML VIAL IV ONE (16:25)
[2022-03-05] MEDS ORDERED: MIDAZOLAM 2 MG/2 ML VIAL ONE (16:25)
[2022-03-05] MEDS ORDERED: LIDOCAINE 2% INJ 20 MG/ML (2 ML VIAL) ONE (16:25)
[2022-03-05] MEDS ORDERED: LIDOCAINE 1%-EPI 1:100,000 20 ML VIAL SQ ONE (17:07)
[2022-03-05] MEDS ORDERED: ROPIVACAINE 5 MG/ML 20 ML AMPULE MISCELLANE ONE (17:08)
--- NOTE | 2022-03-05 17:33 | P.OP ---
Date of Procedure: 03/05/22 Preoperative Diagnosis: Right hand dog bite Postoperative Diagnosis: Right hand dog bite with ulnar nerve contusion Procedure(s) Performed: Right hand incision and drainage Anesthesia: JOCELYN Surgeon: Patricia Gatica Estimated Blood Loss (ml): 5 Condition: stable Disposition: PACU Indications for Procedure: Monica is a 26-year-old female who was bitten by a dog several days ago. Despite receiving IV antibiotics she continues to have drainage and erythema from the wound. We had a long discussion about her treatment options and elected to proceed with an irrigation and debridement of her hyperthenar wound and her thumb MP wound Description of Procedure: Patient, operative extremity, procedure were identified in the preoperative holding area. After informed consent was obtained the patient was brought back to the operating room or local block was performed with 1% lidocaine with epinephrine and half percent Marcaine. The extremity was then prepped and draped in normal sterile fashion with a tourniquet along the patient's brachium. After formal timeout was performed the tourniquet was inflated. Attention was first turned to the hyperthenar wound. Sutures were removed and the incision was extended in a Olya type fashion. All devitalized tissue was carefully d ebrided. The ulnar nerve and artery were identified and found to be intact. There were several branches of the ulnar artery that were lacerated. Distally in the wound, there was a hematoma about the ulnar nerve but it was intact. Debridement was carried down to the level of muscle. Attention was then turned to the wound along the dorsal aspect of the MCP joint. It was extended in a Z fashion and all devitalized tissue was removed. There was serous fluid expressed but no purulence. The extensor tendons were intact. Both wounds were then copiously irrigated with normal saline. Both wounds were closed with nylon suture. Wound was dressed with adaptic 4x4's and an felisha wrap. Patient was aroused by anesthesia and brought back to PACU in stable condition.
[2022-03-05] MEDS ORDERED: ONDANSETRON 4 MG/2 ML VIAL IVP ONE (17:38)
[2022-03-05] MEDS ORDERED: HYDROmorphone 0.5 MG/0.5 ML SYRINGE IVP ONE ×2 (17:41→17:48)
[2022-03-05] MEDS ORDERED: diphenhydrAMINE 50 MG/ML 1 ML VIAL IVP ONE (18:08)
[2022-03-05] MEDS ORDERED: KETOROLAC 15 MG/ML 1 ML VIAL IVP ONE (18:25)
[2022-03-05] MEDS: ESCITALOPRAM 5 MG TAB PO SCH (20:06)
[2022-03-06] MEDS: AMPICILLIN-SULBACTAM 3 GM in SODIUM CHLORIDE 0.9% 100 ML IVPB SCH ×5 (00:30→23:46)
[2022-03-06] MEDS: HYDROcodone/APAP 5-325MG 1 EACH TAB PO PRN ×3 (07:54→20:43)
[2022-03-06] MEDS: FLUTICASONE 110 MCG INHALER INHALATION SCH ×2 (09:18→19:53)
--- NOTE | 2022-03-06 12:00 | P.PN ---
Subjective Progress Note Date: 03/06/22 Principal diagnosis: Status post right hand I&D The patient is a 26 y/o female who is status post right hand I&D. This is post op day #1. She states the hand is feeling ok today. She just had Salley and her pain is controlled. No new complaints. Objective - Vital Signs Vital signs: Vital Signs Temp 98.5 F 03/06/22 07:00 Pulse 73 03/06/22 07:00 Resp 18 03/06/22 08:00 BP 113/70 03/06/22 07:00 Pulse Ox 92 L 03/06/22 07:00 FiO2 Intake & Output 03/05/22 03/06/22 03/06/22 18:59 06:59 18:59 Intake Total 900 240 Output Total 5 Balance 895 240 Intake: IV 900 Oral 0 240 Output: Estimated Blood Loss 5 Other: Voiding Method Toilet Toilet # Voids 1 1 1 - Exam The patient is a 26 y/o female in no acute distress. She is alert and oriented x3. Exam of the right hand reveal a dressing that is clean, dry, and intact. She is able to move her finger but there is limitations due to pain. Numbness is still present to the right little finger. Circulatory status is intact. - Labs CBC & Chem 7: 03/04/22 11:54 03/04/22 11:54 Labs: Microbiology - Last 24 Hours (Table) 03/04/22 17:29 Gram Stain - Preliminary Hand - Right Wound Culture - Preliminary 03/04/22 11:54 Blood Culture - Preliminary Blood No Growth after 24 hours 03/04/22 11:54 Gram Stain - Preliminary Hand - Right Wound Culture - Preliminary Gram Neg Bacilli Assessment and Plan (1) Dog bite of right hand with infection Current Visit: Yes Status: Acute Code(s): S61.451A - OPEN BITE OF RIGHT HAND, INITIAL ENCOUNTER; L08.9 - LOCAL INFECTION OF THE SKIN AND SUBCUTANEOUS TISSUE, UNSP; W54.0XXA - BITTEN BY DOG, INITIAL ENCOUNTER SNOMED Code(s): 087313227 (2) Laceration of hand Current Visit: No Status: Acute Code(s): S61.419A - LACERATION WITHOUT FOREIGN BODY OF UNSP HAND, INIT ENCNTR SNOMED Code(s): 092142882 (3) Asthma Current Visit: Yes Status: Acute Code(s): J45.909 - UNSPECIFIED ASTHMA, UNCOMPLICATED SNOMED Code(s): 249093519 Plan: 1. Continue pain control. 2. IV antibiotics per infectious disease. Awaiting cultures for discharge antibiotic recommendations. May need PICC line placement. 3. Keep dressing in place to right hand. The dressing will be removed tomorrow if she is not 50% better since before hospital admission. 4. Anticipate discharge home in the next 1-2 days after antibiotics are determined.
[2022-03-06] MEDS: HYDROmorphone 0.5 MG/0.5 ML SYRINGE IVP PRN (12:10)
--- NOTE | 2022-03-06 16:47 | P.PN ---
Subjective Progress Note Date: 03/05/22 Principal diagnosis: Right hand dog bite cellulitis and abscess Patient is a 26-year-old female presented to the hospital with right hand dog dog bite cellulitis and abscess, patient is scheduled for surgical I&D later this evening. On today's evaluation that is 03/05/2022 2, the patient denies having any fever or chills, no pain to the right hand to control the pain medication, patient denies having any chest pain or shortness of breath or cough no abdominal pain n o diarrhea Objective - Vital Signs Vital signs: Vital Signs Temp 98 F 03/05/22 14:23 Pulse 69 03/05/22 14:23 Resp 18 03/05/22 14:23 BP 115/69 03/05/22 14:23 Pulse Ox 93 L 03/05/22 14:23 FiO2 Intake & Output 03/04/22 03/05/22 03/05/22 18:59 06:59 18:59 Intake Total 180 0 Balance 180 0 Weight 114.305 kg Intake: Oral 180 0 Other: # Voids 1 2 1 - Exam GENERAL DESCRIPTION: Middle-age female lying in bed in no distress RESPIRATORY SYSTEM: Unlabored breathing , decreased breath sounds at bases HEART: S1 S2 regular rate and rhythm , ABDOMEN: Soft , no tenderness EXTREMITIES: Right and is currently dressed no drainage on the dressing - Labs CBC & Chem 7: 03/04/22 11:54 03/04/22 11:54 Labs: Microbiology - Last 24 Hours (Table) 03/04/22 17:29 Gram Stain - Preliminary Hand - Right Wound Culture - Preliminary 03/04/22 11:54 Blood Culture - Preliminary Blood No Growth after 24 hours 03/04/22 11:54 Gram Stain - Preliminary Hand - Right Wound Culture - Preliminary Gram Neg Bacilli 03/04/22 17:29 Anaerobic Culture - Preliminary Hand - Right Assessment and Plan (1) Dog bite of right hand with infection Current Visit: Yes Status: Acute Code(s): S61.451A - OPEN BITE OF RIGHT HAND, INITIAL ENCOUNTER; L08.9 - LOCAL INFECTION OF THE SKIN AND SUBCUTANEOUS TISSUE, UNSP; W54.0XXA - BITTEN BY DOG, INITIAL ENCOUNTER SNOMED Code(s): 441635778 Plan: 1patient with right hand dog bite cellulitis and wound infection will need to call for the polymicrobial francis of the dog mouth and this patient is not taking her antibiotic as prescribed on initial visit. 2blood and local culture has been obtained which are currently pending 3patient is scheduled for debridement and deep culture this evening per orthopedic. 4patient to continue with Unasyn 3 g every 6 hours 5dry protective dressing to the area. Time with Patient: Less than 30
--- NOTE | 2022-03-06 16:49 | P.PN ---
Subjective Progress Note Date: 03/06/22 Principal diagnosis: Right hand dog bite cellulitis and abscess Patient is a 26-year-old female presented to the hospital with right hand dog dog bite cellulitis and abscess, patient is status post surgical I&D completed 03/05/2022 On today's evaluation that is 03/06/2022, the patient remains to be afebrile, the patient pain to the right hand is controlled with pain medication, patient denies having any chest pain or shortness of breath or cough no abdominal pain no diarrhea Objective - Vital Signs Vital signs: Vital Signs Temp 98.5 F 03/06/22 07:00 Pulse 73 03/06/22 07:00 Resp 18 03/06/22 08:00 BP 113/70 03/06/22 07:00 Pulse Ox 92 L 03/06/22 07:00 FiO2 Intake & Output 03/05/22 03/06/22 03/06/22 18:59 06:59 18:59 Intake Total 900 240 Output Total 5 Balance 895 240 Intake: IV 900 Oral 0 240 Output: Estimated Blood Loss 5 Other: Voiding Method Toilet Toilet # Voids 1 1 1 - Exam GENERAL DESCRIPTION: Middle-age female lying in bed in no distress RESPIRATORY SYSTEM: Unlabored breathing , decreased breath sounds at bases HEART: S1 S2 regular rate and rhythm , ABDOMEN: Soft , no tenderness EXTREMITIES: Right and is currently dressed no drainage on the dressing - Labs CBC & Chem 7: 03/04/22 11:54 03/04/22 11:54 Labs: Microbiology - Last 24 Hours (Table) 03/04/22 11:54 Gram Stain - Preliminary Hand - Right Wound Culture - Preliminary Escherichia coli 03/04/22 11:54 Blood Culture - Preliminary Blood No Growth after 48 hours 03/04/22 17:29 Gram Stain - Preliminary Hand - Right Wound Culture - Preliminary Assessment and Plan (1) Dog bite of right hand with infection Current Visit: Yes Status: Acute Code(s): S61.451A - OPEN BITE OF RIGHT HAND, INITIAL ENCOUNTER; L08.9 - LOCAL INFECTION OF THE SKIN AND SUBCUTANEOUS TISSUE, UNSP; W54.0XXA - BITTEN BY DOG, INITIAL ENCOUNTER SNOMED Code(s): 726284820 Plan: 1patient with right hand dog bite cellulitis and wound infection will need to call for the polymicrobial francis of the dog mouth and this patient is not taking her antibiotic as prescribed on initial visit. 2blood and local culture has been obtained which are currently growing gram-negative with ID sensitivities pending 3patient is status post debridement and deep culture completed on 03/05/2022 4patient to continue with Unasyn 3 g every 6 hours, antibiotic will be adjusted further on the basis of culture keeping in mind deep infection will benefit from a midline and outpatient IV antibiotics discussed with orthopedics Time with Patient: Less than 30
[2022-03-06] MEDS: ESCITALOPRAM 5 MG TAB PO SCH (20:44)
[2022-03-06] MEDS: KETOROLAC 15 MG/ML 1 ML VIAL IVP PRN (23:45)
[2022-03-07] MEDS: AMPICILLIN-SULBACTAM 3 GM in SODIUM CHLORIDE 0.9% 100 ML IVPB SCH ×3 (06:09→18:04)
[2022-03-07] MEDS: FLUTICASONE 110 MCG INHALER INHALATION SCH ×2 (08:24→19:11)
[2022-03-07] MEDS: HYDROcodone/APAP 5-325MG 1 EACH TAB PO PRN ×2 (09:50→19:32)
[2022-03-07] MEDS: KETOROLAC 15 MG/ML 1 ML VIAL IVP PRN (11:30)
--- NOTE | 2022-03-07 12:35 | P.PN ---
Progress Note - Text Progress Note Date: 03/07/22 Orthopedics: History of present illness: Patient is a very pleasant 26-year-old female who is seen and examined at the bedside for follow up evaluation of her right hand. She is status post incision and drainage of the right hand due to dog bite and ulnar nerve contusion. She has kept the postoperative dressing at the right hand clean, dry, and intact. Postoperatively she feels her right hand pain has significantly improved. She has good range of motion of all fingers of the right hand. She is neurovascular intact to the right upper extremity. She does continue to have some numbness at her right pinky finger. She has good active range of motion of the right elbow without difficulty. She continues to receive IV antibiotics. She is being seen by Dr. Jordan in infectious disease. Currently, infectious diseases planning for midline placement with outpatient IV antibiotics. Patient is known to work to the [employer] which travels frequently. Patient does not live locally. Patient is not currently sure how she will manage her outpatient IV antibiotics. Patient has no other complaints at the bedside. She is eating and voiding without difficulty. She denies fever or chills. Patient does have a history of asthma. Physical Exam: Patient is awake, alert, and oriented 3 Vital signs stable Good chest excursion with deep inspiration and expiration Dressing over the right hand is clean, dry, and intact Patient is able to wiggle fingers of the right hand and thumb without significant difficulty Neurovascular intact right upper extremity Patient does have some numbness to palpation over the right pinky finger Patient is able to perform active range of motion right elbow without difficulty Assessment: Status post incision and drainage of the right hand Right hand dog bite Right ulnar nerve contusion Right pinky numbness Right hand pain, improving Asthma Plan: 1. Patient is status post incision and drainage of the right hand due to hand dog bite and right ulnar nerve contusion. Postoperatively she has had significant improvement of her pain in her right hand. She continues to keep the dressing intact at the right hand. This dressing is clean and dry. We discussed given her improvement, we'll continue to keep this dressing intact. We are not currently planning for further surgical intervention at her right hand. Patient would be cleared to discharge from an orthopedic standpoint. Patient is being seen by infectious disease with cultures currently pending. Patient is currently on IV antibiotics with plans for midline placement and outpatient IV antibiotics at discharge. This is being managed by infectious disease. Patient will not be discharged until cleared by infectious disease and appropriate outpatient antibiotic regimen has been established. We did discuss we plan to have her follow up in approximately 1 week and outpatient setting for further evaluation. At that time we would plan to remove the dressing at the right hand. We did discuss she should avoid any excessive activities with the right upper extremity. We will continue to follow the patient closely during her admission to the hospital. 2. Patient will continue be seen examined by infectious disease. Patient continue antibiotic medications as managed by infectious disease.
[2022-03-07] MEDS: HYDROmorphone 0.5 MG/0.5 ML SYRINGE IVP PRN (14:59)
--- NOTE | 2022-03-07 17:06 | P.PN ---
Subjective Progress Note Date: 03/07/22 Principal diagnosis: Right hand dog bite cellulitis and abscess Patient is a 26-year-old female presented to the hospital with right hand dog dog bite cellulitis and abscess, patient is status post surgical I&D completed 03/05/2022 On today's evaluation that is 03/07/2022, the patient continues to be afebrile, the patient pain to the right hand is controlled with current pain medication, patient denies having any chest pain or shortness of breath or cough , the joseph ent denies abdominal pain no diarrhea Objective - Vital Signs Vital signs: Vital Signs Temp 99.2 F 03/07/22 15:00 Pulse 69 03/07/22 15:00 Resp 16 03/07/22 15:00 BP 119/82 03/07/22 15:00 Pulse Ox 94 L 03/07/22 15:00 FiO2 Intake & Output 03/06/22 03/07/22 03/07/22 18:59 06:59 18:59 Intake Total 720 500 338 Balance 720 500 338 Intake: Oral 720 500 338 Other: Voiding Method Toilet Toilet # Voids 2 2 2 - Exam GENERAL DESCRIPTION: Middle-age female lying in bed in no distress RESPIRATORY SYSTEM: Unlabored breathing , decreased breath sounds at bases HEART: S1 S2 regular rate and rhythm , ABDOMEN: Soft , no tenderness EXTREMITIES: Right and is currently dressed no drainage on the dressing - Labs CBC & Chem 7: 03/04/22 11:54 03/04/22 11:54 Labs: Microbiology - Last 24 Hours (Table) 03/04/22 11:54 Blood Culture - Preliminary Blood No Growth after 72 hours 03/04/22 17:29 Gram Stain - Final Hand - Right Wound Culture - Final 03/04/22 17:29 Anaerobic Culture - Preliminary Hand - Right 03/04/22 11:54 Gram Stain - Preliminary Hand - Right Wound Culture - Preliminary Escherichia coli Assessment and Plan (1) Dog bite of right hand with infection Current Visit: Yes Status: Acute Code(s): S61.451A - OPEN BITE OF RIGHT HAND, INITIAL ENCOUNTER; L08.9 - LOCAL INFECTION OF THE SKIN AND SUBCUTANEOUS TISSUE, UNSP; W54.0XXA - BITTEN BY DOG, INITIAL ENCOUNTER SNOMED Code(s): 814866984 Plan: 1patient with right hand dog bite cellulitis and wound infection will need to call for the polymicrobial francis of the dog mouth and this patient is not taking her antibiotic as prescribed on initial visit. Patient is status post surgical drainage of the abscess and deep cultures 2blood cultures has been negative and local culture with an E. coli, OR cultures are currently pending. 3patient to continue with Unasyn 3 g every 6 hours Time with Patient: Less than 30
[2022-03-07] MEDS: ESCITALOPRAM 5 MG TAB PO SCH (19:32)
[2022-03-08] MEDS: AMPICILLIN-SULBACTAM 3 GM in SODIUM CHLORIDE 0.9% 100 ML IVPB SCH ×4 (01:48→15:43)
[2022-03-08 03:37] VITALS: RESP 17
[2022-03-08] MEDS: HYDROcodone/APAP 5-325MG 1 EACH TAB PO PRN ×2 (07:22→15:28)
[2022-03-08] MEDS: ONDANSETRON 4 MG/2 ML VIAL IVP PRN (07:22)
[2022-03-08] MEDS: FLUTICASONE 110 MCG INHALER INHALATION SCH (07:39)
--- NOTE | 2022-03-08 11:22 | P.PN ---
Progress Note - Text Progress Note Date: 03/08/22 Orthopedics: History of present illness: Patient is a very pleasant 26-year-old female who is seen and examined at the bedside for follow up evaluation of her right hand. She has not had any change in her symptoms since being seen and examined yesterday. She is status post incision and drainage of the right hand due to dog bite and ulnar nerve contusion. She has kept the postoperative dressing at the right hand clean, dry, and intact. Postoperatively she feels her right hand pain has significantly improved. She has good range of motion of all fingers of the right hand. She is neurovascular intact to the right upper extremity. She does continue to have some numbness at her right pinky finger. She has good active range of motion of the right elbow without difficulty. She continues to receive IV antibiotics. She is being seen by Dr. Jordan in infectious disease. Currently, infectious diseases planning for midline placement with outpatient IV antibiotics. Patient is known to work through the [employer] which travels [facility]. Patient does not live locally. Patient is not currently sure how she will manage her outpatient IV antibiotics. Patient has no other complaints at the bedside. She is eating and voiding without difficulty. She denies fever or chills. Patient does have a history of asthma. Physical Exam: Patient is awake, alert, and oriented 3 Vital signs stable Good chest excursion with deep inspiration and expiration Dressing over the right hand is clean, dry, and intact Patient is able to wiggle fingers of the right hand and thumb without significant difficulty Neurovascular intact right upper extremity Patient does have some numbness to palpation over the right pinky finger Patient is able to perform active range of motion right elbow without difficulty Assessment: Status post incision and drainage of the right hand Right hand dog bite Right ulnar nerve contusion Right pinky numbness Right hand pain, improving Asthma Plan: 1. We will continue with her plan as set forth yesterday. Patient is status post incision and drainage of the right hand due to hand dog bite and right ulnar nerve contusion. Postoperatively she has had significant improvement of her pain in her right hand. She continues to keep the dressing intact at the right hand. This dressing is clean and dry. We discussed given her improvement, we'll continue to keep this dressing intact. We are not currently planning for further surgical intervention at her right hand. Patient would be cleared to discharge from an orthopedic standpoint. Patient is being seen by infectious disease with cultures currently pending. Patient is currently on IV antibiotics with plans for midline placement and outpatient IV antibiotics at discharge. This is being managed by infectious disease. Patient will not be discharged until cleared by infectious disease and appropriate outpatient antibiotic regimen has been established. We did discuss we plan to have her follow up in approximately 1 week and outpatient setting for further evaluation. At that time we would plan to remove the dressing at the right hand. We did discuss she should avoid any excessive activities with the right upper extremity. We will continue to follow the patient closely during her admission to the hospital. 2. Patient will continue be seen examined by infectious disease. Patient continue antibiotic medications as managed by infectious disease.
[2022-03-08] MEDS: HYDROmorphone 0.5 MG/0.5 ML SYRINGE IVP PRN (11:59)
[2022-03-08 14:53] VITALS: BP 111/68; PULSE 66; TEMP 98.3
--- NOTE | 2022-03-08 17:04 | P.PN ---
Subjective Progress Note Date: 03/08/22 Principal diagnosis: Right hand dog bite cellulitis and abscess Patient is a 26-year-old female presented to the hospital with right hand dog dog bite cellulitis and abscess, patient is status post surgical I&D completed 03/05/2022 On today's evaluation that is 03/08/2022, the patient continues to be afebrile, the patient pain to the right hand is controlled with current pain medication, patient denies having any chest pain or shortness of breath or cough , the joseph ent denies abdominal pain no diarrhea, patient is feeling better wants to go home Objective - Vital Signs Vital signs: Vital Signs Temp 98.3 F 03/08/22 14:51 Pulse 66 03/08/22 14:51 Resp 17 03/08/22 14:51 BP 111/68 03/08/22 14:51 Pulse Ox 93 L 03/08/22 14:51 FiO2 Intake & Output 03/07/22 03/08/22 03/08/22 18:59 06:59 18:59 Intake Total 338 118 Balance 338 118 Intake: Oral 338 118 Other: Voiding Method Toilet # Voids 2 1 3 - Exam GENERAL DESCRIPTION: Middle-age female lying in bed in no distress RESPIRATORY SYSTEM: Unlabored breathing , decreased breath sounds at bases HEART: S1 S2 regular rate and rhythm , ABDOMEN: Soft , no tenderness EXTREMITIES: Right hand swelling and redness has decreased there is no drainage - Labs CBC & Chem 7: 03/04/22 11:54 03/04/22 11:54 Labs: Microbiology - Last 24 Hours (Table) 03/04/22 11:54 Blood Culture - Preliminary Blood No Growth after 96 hours Assessment and Plan (1) Dog bite of right hand with infection Status: Acute Code(s): S61.451A - OPEN BITE OF RIGHT HAND, INITIAL ENCOUNTER; L08.9 - LOCAL INFECTION OF THE SKIN AND SUBCUTANEOUS TISSUE, UNSP; W54.0XXA - BITTEN BY DOG, INITIAL ENCOUNTER SNOMED Code(s): 062372376 Plan: 1patient with right hand dog bite cellulitis and wound infection will need to call for the polymicrobial francis of the dog mouth and this patient is not taking her antibiotic as prescribed on initial visit. Patient is status post surgical drainage of the abscess and deep cultures which are so for negative 2blood cultures has been negative and local culture with an E. coli, OR cultures so far negative. 3patient has clinically improved on Unasyn and is insisting on going home as the patient is out of the town and IV antibiotic may not be feasible at this point prescription for Ceftin and Flagyl has been given to the patient for 2 weeks and advised to follow-up with orthopedic and ID physician where she lives, patient and family has multiple questions were answered in Layman terms Time with Patient: Less than 30
--- NOTE | 2022-03-09 12:01 | P.DS ---
Providers Date of admission: 03/04/22 13:09 Expected date of discharge: 03/08/22 Attending physician: Patricia Gatica DO Consults: 03/04/22 12:14 Consult Physician Routine Consulting Provider: Adriana Jordan Consult Reason/Comments: dog bite right hand Do you want consulting provider notified?: Yes Primary care physician: Physician Nonstaff - Discharge Diagnosis(es) (1) Contusion of right ulnar nerve Status: Acute (2) Status post incision and drainage Status: Acute (3) Right hand pain Status: Acute (4) Asthma Status: Acute (5) Dog bite of right hand with infection Status: Acute (6) Laceration of hand Status: Acute Hospital Course: This is a pleasant 26-year-old female who presented with an infection at the right hand with right ulnar nerve contusion status post dog bite. She was admitted for further treatment and evaluation. She underwent irrigation and drainage of the right hand performed by Dr. Gatica. The patient tolerated the procedure well and did well postoperatively. She has kept the dressing over the right hand clean, dry, and intact. She has been avoiding excessive activities with her right hand. She feels her right hand pain has significantly improved. She has good range of motion of all fingers of the right hand. She does have some numbness in her right pinky finger. She is ready for discharge home. Condition on day of discharge stable. Patient will be discharged home. Patient does not live locally. She does not have any plans to follow-up locally for further evaluation of her right hand. She resides in [place], [place] on [place] the [facility]. Patient states she will plan to contact an orthopedic hand surgeon near the [place], [place] area for follow-up evaluation. During her admission to the hospital she has been seen and examined by Dr. Jordan in infectious disease. She has been cleared for discharge per infectious disease and is prescribed Ceftin and Flagyl at discharge. We did discuss she should take his medications as prescribed to completion of these prescriptions. We did discuss she should keep her dressing intact over the right wrist. She should avoid excessive activities with the right hand. Once again, she is strongly encouraged to follow-up with orthopedic hand surgeon closer to her residence in [place], [place]. [facility] was previously reviewed. An "Opiod Start Talking" Form has been signed and placed in the patient's chart. A prescription has been written for [place] 5 mg/325 mg 1-2 tabs every 6 hours as needed for pain, dispensed #32. Patient's other medical diagnoses include asthma. Physical Exam on day of discharge: Patient is awake, alert, and oriented 3 Vital signs stable Good chest excursion with deep inspiration and expiration Dressing over the right hand is clean, dry, and intact Patient is able to wiggle fingers of the right hand and thumb without significant difficulty Neurovascular intact right upper extremity Patient does have some numbness to palpation over the right pinky finger Patient is able to perform active range of motion right elbow without difficulty Procedures: Incision and drainage of the right hand Patient Condition at Discharge: Good Plan - Discharge Summary Discharge Rx Participant: No New Discharge Prescriptions: New metroNIDAZOLE [Flagyl] 500 mg PO TID #42 tab HYDROcodone/APAP 5-325MG [[place] 5-325] 1 - 2 tab PO Q6HR PRN #32 tab PRN Reason: Pain cefUROXime axetiL [Ceftin] 500 mg PO BID 14 Days #28 tab No Action Albuterol Sulfate [Ventolin HFA] 2 puff INHALATION RT-Q4H PRN PRN Reason: Shortness Of Breath Escitalopram [Lexapro] 5 mg PO HS Fluticasone Propionate 110 Mcg [Flovent 110 Mcg Inhaler] 2 puff INHALATION RT-BID Etonogestrel [Nexplanon] 68 mg SQ [id number] Discharge Medication List Albuterol Sulfate [Ventolin HFA] 2 puff INHALATION RT-Q4H PRN 03/04/22 [History] Escitalopram [Lexapro] 5 mg PO HS 03/04/22 [History] Etonogestrel [Nexplanon] 68 mg SQ [id number] 03/04/22 [History] Fluticasone Propionate 110 Mcg [Flovent 110 Mcg Inhaler] 2 puff INHALATION RT- BID 03/04/22 [History] HYDROcodone/APAP 5-325MG [[place] 5-325] 1 - 2 tab PO Q6HR PRN #32 tab 03/06/22 [Rx] cefUROXime axetiL [Ceftin] 500 mg PO BID 14 Days #28 tab 03/08/22 [Rx] metroNIDAZOLE [Flagyl] 500 mg PO TID #42 tab 03/08/22 [Rx] Follow up Appointment(s)/Referral(s): Patricia Gatica DO [Doctor of Osteopathic Medicine] - 1 Week [facility] [REFERRING] - 1 Week Katerina Montalvo MD [REFERRING] - 1 Week Nonstaff,Physician [Primary Care Provider] - 1-2 days [facility] [REFERRING] - As Needed ([facility] - COVERAGE: 100%) Patient Instructions/Handouts: Animal Bite (DC), Incision and Drainage (DC) Activity/Diet/Wound Care/Special Instructions: 1. Keep dressing over the right hand clean, dry , and inact 2. Patient lives outside the [facility] in [place]. She is not planning for follow-up evaluation locally. She is strongly encouraged to follow-up with an orthopedic hand surgeon locally where she resides. She is planning to call tomorrow and try to schedule an appointment for follow-up evaluation 3. She should take medications as prescribed. She should take antibiotic medications as prescribed until completion if the prescription 4. Avoid excessive activities with the right hand 5. Any questions or concerns she may contact [facility] at [phone] Discharge Disposition: HOME SELF-CARE
== END 2022-03-08 16:45 | disposition home or self-care (01) ==
LOC: EC 10:59 → 6NMEDSUR 13:09
PROVIDERS: ADMIT Orthopaedic Surgery Hand Surgery; ATTEND Orthopaedic Surgery Hand Surgery
DX: S64.01XA Injury of ulnar nerve at wrist and hand level of right arm, initial encounter (principal); W54.0XXA Bitten by dog, initial encounter; J45.909 Unspecified asthma, uncomplicated; F32.A Depression, unspecified; Z90.49 Acquired absence of other specified parts of digestive tract; Z98.891 History of uterine scar from previous surgery; Z98.51 Tubal ligation status; Z87.891 Personal history of nicotine dependence; Z83.438 Family history of other disorder of lipoprotein metabolism and other lipidemia; Z82.49 Family history of ischemic heart disease and other diseases of the circulatory system; Z79.3 Long term (current) use of hormonal contraceptives; Z79.899 Other long term (current) drug therapy
CPT/HCPCS: 96366 ×2; 96375 ×2; 96376; 96365; 99284; 36415; 94640 ×6; 81025 ×2; 80053; 85652; 83605; 85025; 86140; 87040; 87070; 87205; 87075; 87077; 87186; 73130; 10060; G0378 ×5; J2250; J1200; J2405 ×2; J3010; J0295 ×5; J1885 ×4; J2704; J1170 ×5; J2795; J2001